=== PATIENT | female | born 1995 | race Caucasian/White ===

== ENCOUNTER 2021-02-19 12:20 | Outpatient (CLI) | payer BC ==
[2021-02-19 21:47] LABS: SARS-CoV-2 PCR by NAA Not Detected (NotDetected)
== END 2021-02-19 12:21 | disposition home or self-care (01) ==
LOC: CSHLAB 12:20
PROVIDERS: ATTEND Obstetrics & Gynecology
DX: Z20.822 Contact with and (suspected) exposure to COVID-19 (principal)
CPT/HCPCS: U0003; U0005

== ENCOUNTER 2021-02-19 12:50 | Day surgery (SDC) | payer BC ==
[2021-02-19] MEDS ORDERED: hydrALAZINE 20 MG/ML VIAL SLOW IVP PRN (14:15)
[2021-02-19 15:10] LABS: Bilirubin Neg (Negative); Blood, Urine 250 (Negative); Clarity Cloudy (Clear); Glucose, Urine (Dipstick) Normal (Negative); Ketone, Urine 5 mg/dL (Negative); Leukocyte 100 (Negative); Nitrite Negative (Negative); Protein, Urine (Dipstick) 15 mg/dl (Neg-Trace); Urobilinogen Normal mg/dL (Less than 2)
[2021-02-19 15:18] LABS: Bacteria/HPF 1+ HPF (None Seen); RBC/HPF 0-3 HPF (0-3)
[2021-02-19 15:19] LABS: Mucous/LPF 1+ LPF (<2+)
[2021-02-19 16:14] VITALS: BMI 36.9
[2021-02-19 16:39] LABS: Creatinine, Urine 68.41 mg/dL (47-110)
== END 2021-02-19 17:08 | disposition home or self-care (01) ==
LOC: CSHLD/OP 12:50
PROVIDERS: ATTEND Obstetrics & Gynecology
DX: O47.1 False labor at or after 37 completed weeks of gestation (principal); Z3A.39 39 weeks gestation of pregnancy; Z20.822 Contact with and (suspected) exposure to COVID-19
CPT/HCPCS: 81001; 82570; 84156; U0003; U0005

== ENCOUNTER 2021-02-22 08:38 | Inpatient (IN) | payer BC ==
[~2021-02-22 08:38] MED LIST: Bupivacaine 0.25% HCL 30 ML VIAL ONE
[2021-02-22] MEDS ORDERED: Ibuprofen 800 MG TAB PO PRN (08:41)
[2021-02-22] MEDS ORDERED: hydrALAZINE 20 MG/ML VIAL SLOW IVP PRN (08:41)
[2021-02-22] MEDS ORDERED: Butorphanol Tartrate 1 MG/ML VIAL SLOW IVP PRN (08:41)
[2021-02-22] MEDS ORDERED: Diphenoxylate HCl/Atropine Tablet PO PRN ×2 (08:41)
[2021-02-22] MEDS ORDERED: HYDROcodone/Acetaminophen 5/325 mg Tablet PO PRN ×2 (08:41)
[2021-02-22] MEDS ORDERED: Docusate 100 MG CAP PO PRN (08:41)
[2021-02-22] MEDS ORDERED: Misoprostol 200 MCG TAB PR PRN (08:41)
[2021-02-22] MEDS ORDERED: Lidocaine 1% (PF) 30 ML VIAL SC PRN (08:41)
[2021-02-22] MEDS ORDERED: Promethazine HCl 25 MG/ML VIAL IM PRN (08:41)
[2021-02-22] MEDS ORDERED: Acetaminophen 500 MG TAB PO PRN ×2 (08:41→18:34)
[2021-02-22] MEDS ORDERED: NS w/ Oxytocin 30 units 500 ML IVPB SCH (08:45)
[2021-02-22] MEDS ORDERED: NS w/ Oxytocin 30 units 500 ML IV SCH ×2 (08:45)
[2021-02-22] MEDS ORDERED: Penicillin G Potassium 5 MILL.UNITS in Sodium Chloride 0.9% 100 ML IVPB SCH (09:00)
[2021-02-22] MEDS: Lactated Ringer's 1,000 ML IV SCH (09:25)
[2021-02-22 10:01] LABS: Mean Corpuscular HGB CONC 33.9 g/dL (32.0-36.0); Mean Corpuscular Hemoglobin 30.9 pg (27.0-33.0); Mean Platelet Volume 11.7 fl (7.4-10.4); Platelet Count 195 10x3/uL (150-450); RBC Distribution Width 13.2 % (11.5-14.5); Red Blood Cell (RBC) Count 4.21 10x6/uL (3.90-5.03); White Blood Cell (WBC) Count 11.1 10x3/uL (3.5-10.5)
[2021-02-22 10:43] LABS: HIV (1/2) Antibody/Antigen Non-Reactive (NonReactive); HIV 1/2 INDEX 0.07 S/CO (<1.00); Hep B Surf Ag Non-Reactive S/CO (NonReactive); Syphilis Antibody Nonreactive (Nonreactive); Syphilis Antibody Index 0.02 S/CO (<1.00 Non-Reactive)
[2021-02-22 10:49] LABS: HBSAg Index 0.16 S/CO (0-0.99)
[2021-02-22] MEDS: Ondansetron PF 4 MG/2 ML Vial IVP PRN (23:10)
[2021-02-23] MEDS: Penicillin G 2.5 MILL.units 2.5 MILL.UNITS in Premix Bag 1 BAG IVPB SCH ×5 (03:07→16:38)
[2021-02-23] MEDS ORDERED: Fentanyl 2 mcg/Bup 0.1% Cadd 100 ML ONE (04:47)
[2021-02-23] MEDS ORDERED: Promethazine HCl 25 MG/ML VIAL IM PRN (05:32)
[2021-02-23] MEDS ORDERED: ePHEDrine Sulfate 50 MG/10 ML VIAL SLOW IVP PRN (05:32)
[2021-02-23] MEDS ORDERED: Lactated Ringer's 500 ML IV PRN (05:32)
[2021-02-23] MEDS ORDERED: Ondansetron PF 4 MG/2 ML Vial IVP PRN ×2 (05:32→13:39)
[2021-02-23] MEDS ORDERED: diphenhydrAMINE 50 MG/ML VIAL IVP PRN (05:32)
[2021-02-23] MEDS ORDERED: Hydrocerin (Eucerin) Cream 120 gm Jar TOP PRN (05:32)
[2021-02-23] MEDS ORDERED: Naloxone HCl 0.4 mg/ml Vial IVP PRN ×2 (05:32)
[2021-02-23] MEDS ORDERED: Acetaminophen 325 MG TAB PO PRN (05:32)
[2021-02-23] MEDS ORDERED: Fentanyl 2 mcg/Bupivacaine 0.1% Cassette 100 ML EPIDURAL SCH (05:45)
[2021-02-23] MEDS ORDERED: Communication Order-Pharmacy FS SCH (05:45)
[2021-02-23] MEDS: Ondansetron PF 4 MG/2 ML Vial IVP PRN (08:45)
[2021-02-23] MEDS ORDERED: Dextrose 5%-Lactated Ringers 1,000 ML IV SCH (11:00)
[2021-02-23] MEDS ORDERED: Methylergonovine 0.2 MG/ML VIAL ONE (12:25)
[2021-02-23] MEDS ORDERED: Misoprostol 200 MCG TAB ONE (12:25)
[2021-02-23] MEDS ORDERED: Milk Of Magnesia 30 ML UDCUP PO PRN (13:39)
[2021-02-23] MEDS ORDERED: HYDROcodone/Acetaminophen 5/325 mg Tablet PO PRN ×2 (13:39)
[2021-02-23] MEDS ORDERED: Lanolin Ointment 7 GM TUBE TOP PRN (13:39)
[2021-02-23] MEDS ORDERED: diphenhydrAMINE 25 MG CAP PO PRN (13:39)
[2021-02-23] MEDS ORDERED: Boostrix 0.5 ML (Tdap) VIAL IM ONE (13:39)
[2021-02-23] MEDS ORDERED: Benzocaine-Menthol 82.5 ML CAN TOP PRN (13:39)
[2021-02-23] MEDS ORDERED: Bisacodyl 10 MG SUPP PR PRN (13:39)
[2021-02-23] MEDS ORDERED: Misoprostol 200 MCG TAB VAG PRN (13:39)
[2021-02-23] MEDS ORDERED: hydrALAZINE 20 MG/ML VIAL SLOW IVP PRN (13:39)
[2021-02-23] MEDS ORDERED: Preparation H Ointment 28 GM TUBE PR PRN (13:39)
[2021-02-23] MEDS ORDERED: NS w/ Oxytocin 30 units 500 ML IV SCH (13:45)
[2021-02-23] MEDS: Lactated Ringer's 1,000 ML IV SCH ×2 (16:36→16:37)
[2021-02-23] MEDS: Ferrous Sulfate 325 MG TAB PO SCH (17:02)
[2021-02-23] MEDS: Ibuprofen 800 MG TAB PO SCH ×2 (18:32→21:16)
[2021-02-23] MEDS: Docusate Calcium (SURFAK) 240 MG CAP PO SCH (21:16)
[2021-02-24] MEDS: Ibuprofen 800 MG TAB PO SCH ×3 (05:22→21:56)
[2021-02-24 06:11] LABS: Hemoglobin 11.4 g/dL (12.0-15.5); Mean Corpuscular HGB CONC 33.1 g/dL (32.0-36.0); Mean Corpuscular Hemoglobin 30.8 pg (27.0-33.0); Mean Platelet Volume 11.5 fl (7.4-10.4); Platelet Count 174 10x3/uL (150-450); RBC Distribution Width 13.4 % (11.5-14.5); White Blood Cell (WBC) Count 13.6 10x3/uL (3.5-10.5)
[2021-02-24] MEDS: Ferrous Sulfate 325 MG TAB PO SCH ×2 (07:23→13:23)
[2021-02-24] MEDS: Docusate Calcium (SURFAK) 240 MG CAP PO SCH ×2 (08:41→21:56)
[2021-02-24] MEDS: Prenatal Vitamin 1 TAB PO SCH (08:41)
[2021-02-25] MEDS: Ibuprofen 800 MG TAB PO SCH (05:09)
[2021-02-25 08:07] VITALS: BP 134/83; TEMP 97.7
[2021-02-25] MEDS: Ferrous Sulfate 325 MG TAB PO SCH (08:24)
[2021-02-25] MEDS: Prenatal Vitamin 1 TAB PO SCH (09:07)
[2021-02-25] MEDS: Docusate Calcium (SURFAK) 240 MG CAP PO SCH (09:07)
== END 2021-02-25 12:15 | disposition home or self-care (01) | DRG 806 ==
LOC: CSHLD 08:38 → CSHPP 02-23 16:00
PROVIDERS: ADMIT Obstetrics & Gynecology; ATTEND Obstetrics & Gynecology
PROC: 10E0XZZ Delivery of Products of Conception, External Approach (ICD-10-PCS; principal; 2021-02-23)
PROC: 3E033VJ Introduction of Other Hormone into Peripheral Vein, Percutaneous Approach (ICD-10-PCS; 2021-02-23)
PROC: 0HQ9XZZ Repair Perineum Skin, External Approach (ICD-10-PCS; 2021-02-23)
PROC: 0UQMXZZ Repair Vulva, External Approach (ICD-10-PCS; 2021-02-23)
DX: O13.4 Gestational [pregnancy-induced] hypertension without significant proteinuria, complicating childbirth (principal); O98.82 Other maternal infectious and parasitic diseases complicating childbirth; Z37.0 Single live birth; Z3A.40 40 weeks gestation of pregnancy; B95.1 Streptococcus, group B, as the cause of diseases classified elsewhere; O99.814 Abnormal glucose complicating childbirth; O99.02 Anemia complicating childbirth; D64.9 Anemia, unspecified
CPT/HCPCS: 36415; 51702; 81001; 82570; 84156; 85027; 86780; 86850; 86900; 86901; 87340; 87389; 99283; J0595; J2405; J2540; J2590; J3490; J7120; S0020; U0003; U0005